=== PATIENT | female | born 1950 | race Caucasian/White ===

== ENCOUNTER 2016-07-13 09:03 | Inpatient (IN) | payer MEDICARE ==
[2016-07-13] MEDS ORDERED: SODIUM CHLORIDE 0.9% 1,000 ML IV STA (09:06)
[2016-07-13] MEDS ORDERED: ACETAMINOPHEN IV (For NPO) 1,000 MG in SALINE 1 100ML.BAG IVPB STA (09:07)
[2016-07-13 09:16] LABS: Glucose,Whole Blood 492 mg/dL (75-99)
--- NOTE | 2016-07-13 09:20 | ED ---
General Adult HPI - General Chief complaint: Neuro Symptoms/Deficit Stated complaint: Neuro Def Time Seen by Provider: 07/13/16 09:06 Source: patient, EMS, RN notes reviewed Mode of arrival: EMS Limitations: altered mental status, physical limitation - History of Present Illness Initial comments: Patient is a pleasant 66-year-old female presenting to the emergency department with weakness. Patient last known well last night. Family tried to get patient out of her chair this morning and she fell. When EMS arrived they did notice patient having left-sided flaccid weakness. Patient did complain of headache. Patient still complains of headache. Patient states she knows the headache when she woke this morning. Patient admits to feeling somewhat confused. No history of similar symptoms previously. Patient denies any trauma to her head. No neck pain. - Related Data Home Medications Medication Instructions Recorded Confirmed ALPRAZolam [Xanax] 2 mg PO BID 07/13/16 07/13/16 Citalopram Hydrobromide [CeleXA] 40 mg PO DAILY 07/13/16 07/13/16 Insulin Aspart [NovoLOG] 0 unit SQ TID 07/13/16 07/13/16 Insulin Detemir [Levemir] 30 unit SQ DAILY 07/13/16 07/13/16 Levothyroxine Sodium [Synthroid] 100 mcg PO DAILY 07/13/16 07/13/16 traZODone HCL 300 mg PO HS 07/13/16 07/13/16 Allergies Allergy/AdvReac Type Severity Reaction Status Date / Time morphine Allergy Unknown Verified 07/13/16 09:17 Review of Systems ROS Statement: Those systems with pertinent positive or pertinent negative responses have been documented in the HPI. ROS Other: All systems not noted in ROS Statement are negative. Constitutional: Denies: fever Eyes: Denies: eye pain ENT: Denies: ear pain Respiratory: Denies: dyspnea Cardiovascular: Denies: chest pain Endocrine: Denies: fatigue Gastrointestinal: Denies: abdominal pain Genitourinary: Denies: dysuria Musculoskeletal: Denies: back pain Skin: Denies: rash Neurological: Reports: headache, weakness, confusion Past Medical History Past Medical History: Unable to Obtain, Diabetes Mellitus, Hypertension, Seizure Disorder, Thyroid Disorder History of Any Multi-Drug Resistant Organisms: Unobtainable Past Surgical History: Unable to Obtain Past Psychological History: Anxiety Smoking Status: Unknown if ever smoked Past Alcohol Use History: Unable to Obtain Past Drug Use History: Unable to Obtain General Exam Limitations: altered mental status, physical limitation General appearance: alert, in no apparent distress Head exam: Present: atraumatic Eye exam: Present: normal appearance, PERRL, other (Right-sided gaze with limited movement towards the left) ENT exam: Present: normal oropharynx Neck exam: Present: normal inspection. Absent: tenderness Respiratory exam: Present: normal lung sounds bilaterally Cardiovascular Exam: Present: regular rate, normal rhythm GI/Abdominal exam: Present: soft. Absent: tenderness Extremities exam: Present: normal inspection Neurological exam: Present: alert, oriented X3 Expanded Neurological exam: Present: protecting the airway, other (Mildly garbled speech. Mild left facial droop) Patient oriented to: Present: person, time. Absent: place (Patient states she is in the ambulance) Sensory exam: Upper Extremity Light Touch: Abnormal Left, Lower Extremity Light Touch: Normal Motor strength exam: RUE: 5, LUE: 0, RLE: 5, LLE: 0 Eye Response: (4) open spontaneously Motor Response: (6) obeys commands Verbal Response: (4) confused conversation Psychiatric exam: Present: normal affect, normal mood Skin exam: Absent: rash Course Vital Signs 07/13/16 09:10 Temperature 97.7 F Pulse Rate 102 H Respiratory 18 Rate Blood Pressure 114/57 O2 Sat by Pulse 94 L Oximetry - Reevaluation(s) Reevaluation #1: 07/13/16 09:21 Patient is not a TPA candidate secondary to onset of symptoms greater than 4.5 hours. 07/13/16 09:41 Further history taken from family who states patient has not been doing well for actually a couple of days. He states patient had difficulty walking yesterday and did have a seizure yesterday as well. He did notice symptoms worse this morning. EKG Findings - EKG Comments: EKG Findings:: Normal sinus rhythm and 98. DC 192. QRS 88. QT 388. QTC 495. Normal axis. Normal QRS. Normal ST-T. Medical Decision Making - Medical Decision Making Patient reevaluated and unchanged. Family and patient updated on results and plan. Dr. Shipman paged for admission for Dr. Nicholson. - Lab Data Result diagrams: 07/13/16 09:10 Lab Results 07/13/16 07/13/16 07/13/16 Range/Units 09:06 09:10 09:10 WBC 14.3 H (3.8-10.6) k/uL RBC 3.92 (3.80-5.40) m/uL Hgb 10.6 L (11.4-16.0) gm/dL Hct 34.2 (34.0-46.0) % MCV 87.5 (80.0-100.0) fL MCH 27.0 (25.0-35.0) pg MCHC 30.9 L (31.0-37.0) g/dL RDW 15.1 (11.5-15.5) % Plt Count 407 (150-450) k/uL PT 11.1 (9.0-12.0) sec INR 1.1 (<1.1) APTT 22.0 (22.0-30.0) sec POC Glucose (mg/dL) 492 H (75-99) mg/dL POC Glu Dynamo Tender ID Jaswinder Colin Disposition Clinical Impression: Cerebrovascular accident Disposition: ADMITTED IP TO THIS HOSP Condition: Serious
--- NOTE | 2016-07-13 09:30 | CT ---
EXAMINATION TYPE: CT brain wo con DATE OF EXAM: 07/13/2016 9:23 AM COMPARISON: NONE HISTORY: Neurodeficits, acute onset left-sided weakness CT DLP: 1012.70 mGycm. Automated Exposure Control for Dose Reduction was Utilized. TECHNIQUE: CT scan of the head is performed without contrast. FINDINGS: There is no acute intracranial hemorrhage or midline shift identified. The ventricles an d sulci show mild generalized atrophy. There is gonzalez-white matter blurring with sulcal effacement inv olving the right frontal parietal region with extension into the temporal lobe consistent with large evolving acute infarct. The globes are intact and the visualized sinuses are clear. IMPRESSION: No acute intracranial hemorrhage or midline shift is seen. Large evolving acute infarct right MCA distribution noted.
[2016-07-13 09:39] LABS: CH 27.6; CHCM 31.7; HCT 34.2 % (34.0-46.0); HDW 2.88; HGB 10.6 gm/dL (11.4-16.0); Hypochromasia Slight; Immature Gran Flag Marked; MCHC 30.9 g/dL (31.0-37.0); MCV 87.5 fL (80.0-100.0); Mean Platelet Volume 7.8; RBC 3.92 m/uL (3.80-5.40); RDW 15.1 % (11.5-15.5); WBC 14.3 k/uL (3.8-10.6); WBC (Perox) 15.09
[2016-07-13 09:44] LABS: INR 1.1 (<1.1); Prothrombin Time 11.1 sec (9.0-12.0)
[2016-07-13 09:47] LABS: AST 52 U/L (14-36); Blood Urea Nitrogen 43 mg/dL (7-17); Carbon Dioxide 19 mmol/L (22-30); Total Bilirubin 0.9 mg/dL (0.2-1.3)
[2016-07-13] MEDS ORDERED: ASPIRIN 325 MG TAB PO STA (09:53)
[2016-07-13 10:01] LABS: ALT 18 U/L (9-52); Alkaline Phosphatase 98 U/L (38-126); Anion Gap 19 mmol/L; Chloride 96 mmol/L (98-107); Non-African American GFR(MDRD) 16 (>60 ml/min/1.73 sqM); Sodium 134 mmol/L (137-145)
[2016-07-13 10:06] LABS: Glucose 496 mg/dL (74-99)
[2016-07-13 10:13] LABS: Add Differential Manual Differential; Troponin I 0.023 ng/mL (0.000-0.034)
[2016-07-13] MEDS ORDERED: INSULIN REGULAR 100 UNIT/ML VIAL SQ ONE (10:14)
[2016-07-13 10:16] LABS: Creatine Kinase MB 8.1 ng/mL (0.0-2.4)
[2016-07-13] MEDS ORDERED: SODIUM CHLORIDE 0.9% 500 ML IV STA (10:16)
[2016-07-13 10:17] LABS: Band Neutrophils % 15.5 %; Metamyelocytes % 2.5 %; Nucleated Red Blood Cells 0 /100 WBC (0-0); Polychromasia Present; Total Cells Counted 200
--- NOTE | 2016-07-13 10:21 | XR ---
EXAMINATION TYPE: XR chest 1V portable DATE OF EXAM: 07/13/2016 9:35 AM COMPARISON: NONE HISTORY: Weakness TECHNIQUE: Single AP portable frontal upright view of the chest is obtained. FINDINGS: There is chronic parenchymal change without suspicious focal air space opacity, pleural ef fusion, or pneumothorax seen. The cardiac silhouette size is mildly enlarged with atherosclerotic th oracic aorta. The osseous structures are intact. IMPRESSION: No acute pulmonary process.
[2016-07-13 13:33] LABS: Glucose,Whole Blood 451 mg/dL (75-99)
[2016-07-13 13:46] LABS: Hemoglobin A1C 9.7 % (4.2-6.1)
[2016-07-13] MEDS: LEVOTHYROXINE 100 MCG TAB PO SCH (14:19)
[2016-07-13] MEDS: INSULIN LISPRO (humaLOG) 300 UNIT/3 ML VIAL SQ SCH ×3 (14:20→21:12)
[2016-07-13] MEDS: SODIUM CHLORIDE 0.9% 1,000 ML IV SCH ×2 (14:25→21:12)
[2016-07-13] MEDS: INSULIN DETEMIR 100 UNIT/ML 10 ML VIAL SQ SCH (14:32)
--- NOTE | 2016-07-13 14:36 | ECHOF ---
Referral Reason: MEASUREMENTS -------- HEIGHT: 167.6 cm WEIGHT: 93.0 kg BP: IVSd: 0.9 cm (0.6 - 1.1) LVIDd: 2.0 cm (3.9 - 5.3) LVPWd: 1.1 cm (0.6 - 1.1) IVSs: 1.3 cm LVIDs: 1.1 cm LVPWs: 1.3 cm Ao Diam: 3.4 cm (2.0 - 3.7) AV Cusp: 2.6 cm (1.5 - 2.6) LA Diam: 2.3 cm (2.7 - 3.8) MV E Fan: 0.66 m/s MV DecT: 180 ms MV A Fan: 1.04 m/s MV E/A Ratio: 0.63 RAP: 5.00 mmHg RVSP: 11.07 mmHg FINDINGS -------- Sinus rhythm. This was a technically adequate study. Left ventricular wall thickness is normal. Overall left ventricular systolic function is normal with, an EF between 55 - 60 %. The right ventricle is normal in size and function. The left atrium is normal in size. The right atrium is normal in size. The aortic valve is trileaflet, and appears structurally normal. No aortic stenosis or regurgitation. The mitral valve leaflets are mildly thickened. Mild mitral regurgitation is present. Trace tricuspid regurgitation present. The right ventricular systolic pressure, as measured by Doppler, is 11.07mmHg. Pulmonic valve appears structurally normal. The aortic root size is normal. The pericardium is normal. CONCLUSIONS -------- 1. Sinus rhythm. 2. Mild mitral regurgitation is present. 3. Trace tricuspid regurgitation present. 4. The right ventricular systolic pressure, as measured by Doppler, is 11.07mmHg. 5. Pulmonic valve appears structurally normal. 6. The aortic root size is normal. 7. The pericardium is normal. 8. This was a technically adequate study. 9. Left ventricular wall thickness is normal. 10. Overall left ventricular systolic function is normal with, an EF between 55 - 60 %. 11. The right ventricle is normal in size and function. 12. The left atrium is normal in size. 13. The right atrium is normal in size. 14. The aortic valve is trileaflet, and appears structurally normal. No aortic stenosis or regurgitation. 15. The mitral valve leaflets are mildly thickened. BRUSH CLEARER SURVEYING: Lisbet Pressley RDCS
[2016-07-13] MEDS ORDERED: SODIUM BICARB 8.4% 50 ML SYR (1 MEQ/ML) IV ONE (15:32)
[2016-07-13] MEDS ORDERED: DEXTROSE 50%-WATER 50 ML SYRINGE IVP ONE (15:32)
[2016-07-13] MEDS ORDERED: INSULIN REGULAR 100 UNIT/ML VIAL IV ONE (15:32)
[2016-07-13] MEDS ORDERED: CALCIUM GLUCONATE 1,000 MG in SODIUM CHLORIDE 0.9% 100 ML IVPB ONE (16:00)
[2016-07-13 16:30] LABS: Glucose,Whole Blood 324 mg/dL (75-99)
--- NOTE | 2016-07-13 17:10 | HP ---
DATE OF SERVICE: 07/13/2016 CHIEF COMPLAINT: Slurring of speech and left-sided weakness. HISTORY OF PRESENT ILLNESS: Ms. Monson is a 66-year-old female with a past medical history of diabetes mellitus, hypertension, seizure disorder, thyroid disorder brought in by family with a chief complaint of left-sided weakness and slurring of speech. Patient has currently slurring of speech and is not able to provide good history, so most of the history is taken from the son who is at the bedside and also from her sister. As per the son, the patient was noted to have a seizure-like activity. Yesterday afternoon, she had some difficulty in her speech, but they it was okay as the seizures resolved. Later on, she went to bed and this morning they tried to get her up into a chair, but she could not and she fell and at that time they noted that the patient had left-sided flaccid weakness. Patient does complain of some headache. The patient is confused at times. She has slurring of speech, but no facial droop is noted. The patient denies having any trauma to her head. No complaints of any neck pain. As per the son, patient is compliant with her medications. Nothing unusual happened yesterday. Patient did not have any fevers. REVIEW OF SYSTEMS: Cannot be obtained as she can only mumble. PAST MEDICAL HISTORY : 1. Type 2 diabetes mellitus, poorly controlled with A1c of 9.7. 2. History of hypertension. 3. Seizure disorder. 4. Thyroid disorder. ALLERGIES ARE TO MORPHINE. Patient's home medications: 1. Xanax 2 mg p.o. b.i.d. 2. Citalopram 40 mg p.o. daily. 3. Lantus 30 units at night and 4. Levothyroxine 100 mcg p.o. daily. 5. Trazodone 30 mg p.o. q.h.s. and 6. She is on NovoLog on a sliding scale SOCIAL HISTORY: Patient does not smoke or drink currently. PAST SURGICAL HISTORY: Patient's son is unable to provide us any information on that. FAMILY HISTORY: Her son states that there is no family history of stroke or hypertension. EXAMINATION: Patient's vitals: Temperature 97.1, heart rate 96, respirations 18, blood pressure 106/56, saturating at 96% on 2L of nasal cannula. GENERAL: Patient does not appear to be in acute distress, but at times she is confused. APPLIED ANTHROPOLOGIST: Flaccid paralysis of her left upper and lower extremities. There is some slurring of speech and she is confused at times. HEAD: Atraumatic. EYES: Pupils equal and round and reactive to light. Right-sided gaze with limited movement toward the left. NECK: No thyromegaly. No JVD. RESPIRATORY: Bilateral breath sounds are positive. CARDIAC: S1, S2 heard. GI: Abdomen is soft, nontender. Bowel sounds positive. EXTREMITIES: No edema. No cyanosis. NEUROLOGICAL: The patient is alert, awake, follows commands, but at times is confused. The left upper and lower extremity motor strength is 0 out of 5. MUSCULOSKELETAL: No joint swellings or deformities. SKIN: No rashes. PSYCHIATRIC: She is not tearful. Patient's labs are white count of 14.3, hemoglobin is 10.6, platelets of 407. Sodium 134, potassium 6, chloride 96, bicarb 19, BUN 43, creatinine 3, blood sugar of 400. Hemoglobin A1c of 9.7. Total protein is 7. Albumin 3.5. Acetone is negative. Patient did have a CT scan of the brain showing a large evolving acute infarct of the right MCA. ASSESSMENT AND PLAN: 1. Acute infarct of the right middle cerebral artery with left-sided flaccid paralysis of the upper and lower extremities. 2. Hyperkalemia. 3. Acute kidney injury. 4. Hyperglycemia. 5. Leukocytosis. 6. Type 2 diabetes mellitus, poorly controlled with A1c of 9.7. 7. History of hypertension. 8. Seizure disorder. 9. Thyroid disorder. PLAN: 1. The patient has an acute stroke of the right MCA territory with left-sided hemiparesis. The patient did receive aspirin and started on Plavix by Neurology. She is not a candidate for TPA. 2. Will continue with IV fluids for her acute kidney injury. Will repeat her potassium. 3. Will get a carotid artery Doppler and an echocardiogram for the stroke workup. Neurology has been consulted. PT, OT has been consulted. Overall prognosis is poor. Further recommendations to follow, depending on the progress of the patient. GLORYD
[2016-07-13 20:33] LABS: Glucose,Whole Blood 188 mg/dL (75-99)
--- NOTE | 2016-07-13 20:44 | P.CNNES ---
History of Present Illness Consult date: 07/13/16 Requesting physician: Buster Geronimo Reason for Consult: CVA Chief complaint: CVA History of Present Illness: Patient is a 66-year-old female in consult on by neurology at the request of Dr. Geronimo. Patient presented in the emergency department with weakness. Weakness began occurring over the previous 24 hours. Family try to get the patient out of the chair this morning and she fell. EMS arrived and noted the patient had left-sided flaccid weakness. Patient also complained of a headache. Patient admitted waking this morning with the headache. She also admits to feeling somewhat confused. Patient does have a seizure history approximately greater than 2 years with no ongoing management. Family states that the patient over the last couple weeks has become increasingly more confused, having difficulty ambulating and appeared to veer to one side but family members could not agree if it was to the left or to the right. On contact, the patient was semireclined in bed, alert and oriented 3 with obvious left-sided facial upper extremity and lower extremity deficits. Patient 's speech was intermittently slurred but the patient was able to answer questions as well as formulate thoughts. Patient CT of the brain was positive for right MCA infarct. Review of Systems All systems not previously noted in HPI above are negative. Past Medical History Past Medical History: Unable to Obtain, Diabetes Mellitus, Hypertension, Seizure Disorder, Thyroid Disorder History of Any Multi-Drug Resistant Organisms: Unobtainable Past Surgical History: Unable to Obtain Past Psychological History: Anxiety Smoking Status: Unknown if ever smoked Past Alcohol Use History: Unable to Obtain Past Drug Use History: Unable to Obtain Medications and Allergies Home Medications Medication Instructions Recorded Confirmed Type ALPRAZolam [Xanax] 2 mg PO BID 07/13/16 07/13/16 History Citalopram Hydrobromide [CeleXA] 40 mg PO QAM 07/13/16 07/13/16 History Insulin Aspart [NovoLOG] See Protocol SQ AC-TID 07/13/16 07/13/16 History Insulin Detemir [Levemir] 30 unit SQ QAM 07/13/16 07/13/16 History Levothyroxine Sodium [Synthroid] 100 mcg PO DAILY 07/13/16 07/13/16 History Timolol 0.5% Ophth Soln [Timoptic 1 drop BOTH EYES HS 07/13/16 07/13/16 History 0.5% Ophth Soln] traZODone HCL 300 mg PO HS 07/13/16 07/13/16 History Allergies Allergy/AdvReac Type Severity Reaction Status Date / Time morphine Allergy Unknown Verified 07/13/16 10:30 Physical Examination - Vital Signs Vital Signs: Vital Signs Temp Pulse Pulse Resp BP BP Pulse Ox 07/13/16 20:11 83 22 07/13/16 16:00 97.7 F 99 20 123/58 97 07/13/16 10:55 98.2 F 83 22 102/55 93 L 07/13/16 10:25 97.1 F L 96 18 106/56 96 07/13/16 10:03 96 18 108/59 96 Intake and Output 07/13/16 07/13/16 07/13/16 06:59 14:59 22:59 Output Total 5 Balance -5 Output: Stool 5 Other: Voiding Method Diaper Incontinent # Voids 1 2 Weight 92.986 kg Patient Weight 07/14/16 06:59 Weight 92.986 kg Constitutional: AOx3, cooperative Head: NC/AT Throat: Supple, no masses Respiratory: No increased work of breathing Cardiac: Regular rate and Rhythm GI: non tender, non distended Musculoskeletal: Big Data Hadoop Developer strengths: left upper extremity-0 /5, left lower extremity-0/5, right upper extremity 4/5, right lower extremity 4/5 Neurological: CN II-XII in tact, patient was AOx3, speech and language garbled, left-sided unilateralizing weakness, no seizure activity note on physical exam. Sensation was normal. Integementary: no rash, no erythema Psychiatric: mood and affect appropriate Results - Laboratory Findings CBC and BMP: 07/13/16 09:10 07/13/16 09:10 Abnormal Lab Findings: Abnormal Labs 07/13/16 07/13/16 13:31 16:29 POC Glucose (mg/dL) 451 H 324 H Assessment and Plan (1) Cerebrovascular accident Status: Acute (2) Acute kidney injury Status: Acute (3) Acute hyperkalemia Status: Acute (4) Hyperglycemia Status: Acute Plan: 1. CVA: Patient has documented imaging changes involving the right middle cerebral artery on CT of the brain. Patient has extensive left-sided upper and lower extremity deficits. Patient also has noticeable left-sided facial droop, garbled speech. PT, OT and speech therapy are already on consult. Continue aspirin, Plavix, statin at existing dose and frequency. Neurochecks every 4 hours Notify neurology with any neurological status change immediately. 2. Acute kidney injury: stat BMP ordered if abnormal notify PCP. 3. Hyperkalemia: Patient has documented hyperkalemia as evidenced by lab values. Potassium level is 6.0elevated. Stat BMP ordered. 4. Hyperglycemia: Patient is a known diabetic greater than 3 years with uncontrolled diabetes. Recommend endocrinology consult. A1c is greater than 9. Recommend consult nutrition. I discussed the patient's pertinent medical information with Dr. Palacio. He agrees with the plan of care as implemented. Status: Neurology Will continue to follow and provide updates as needed or warranted. If any questions, contact our office.
[2016-07-13] MEDS: TIMOLOL 0.5% OPHTH DROPS 5 ML BTL BOTH EYES SCH (21:15)
[2016-07-13] MEDS: ATORVASTATIN 80 MG TAB PO SCH (21:15)
[2016-07-13 21:58] LABS: Calcium 9.2 mg/dL (8.4-10.2); Potassium 4.2 mmol/L (3.5-5.1)
[2016-07-13] MEDS: ALPRAZolam 0.5 MG TAB PO SCH (22:59)
[2016-07-14 06:18] LABS: Glucose,Whole Blood 184 mg/dL (75-99)
[2016-07-14] MEDS: INSULIN LISPRO (humaLOG) 300 UNIT/3 ML VIAL SQ SCH ×4 (06:48→21:37)
[2016-07-14] MEDS: SODIUM CHLORIDE 0.9% 1,000 ML IV SCH ×2 (06:48→17:39)
[2016-07-14 07:07] LABS: Basophils % (A) 0 %; CHCM 31.5; Eosinophils # (A) 0.1 k/uL (0-0.7); Eosinophils % (A) 1 %; HCT 29.4 % (34.0-46.0); HDW 2.84; HGB 9.2 gm/dL (11.4-16.0); Hypochromasia Slight; Luc % (Auto) 2; Lymphocytes # (A) 1.7 k/uL (1.0-4.8); Lymphocytes % (A) 15 %; MCH 26.9 pg (25.0-35.0); MCHC 31.4 g/dL (31.0-37.0); MCV 85.8 fL (80.0-100.0); Mean Platelet Volume 6.6; Monocytes # (A) 0.7 k/uL (0-1.0); Monocytes % (A) 6 %; Neutrophils % (A) 77 %; RBC 3.42 m/uL (3.80-5.40); RDW 14.8 % (11.5-15.5); WBC 11.7 k/uL (3.8-10.6); WBC (Perox) 12.62
[2016-07-14 07:30] LABS: Calcium 8.9 mg/dL (8.4-10.2); Potassium 4.4 mmol/L (3.5-5.1)
--- NOTE | 2016-07-14 08:10 | P.NPCON ---
History of Present Illness - Reason for Consult acute renal failure - History of Present Illness Reason for consultation: Acute kidney injury History of present illness: Patient is a 66-year-old female seen in renal consultation for acute kidney injury. Unclear as to what her baseline renal function is. Her creatinine was 3 on admission and has been improving with IV hydration. It is down to 1.6 today. Patient presented to hospital with left-sided weakness as well as slurring of her speech. She is noted to have a right MCA acute CVA. She is currently on a soft diet but her oral intake remains poor. Denies any vomiting or diarrhea. Denies chest pain or shortness of breath. She was hyperkalemic on admission which is improved with improved renal function. Her blood sugar was also near 500 on admission which worsened the hyperkalemia. This morning her blood sugar is 184. Potassium level this morning is 4.4. I don't see any NSAIDs listed in her home medications. She has been voiding without any evidence of hematuria. Vital signs are stable. General: The patient appeared well nourished and normally developed. HEENT: Head exam is unremarkable. Neck is without jugular venous distension. LUNGS: Lungs are clear to auscultation and percussion. Breath sounds decreased. HEART: Rate and Rhythm are regular. First and second heart sounds normal. No murmurs, rubs or gallops. ABDOMEN: Abdominal exam reveals normal bowel sounds. Non-tender and non- distended. No evidence of peritonitis. EXTREMITITES: No clubbing, cyanosis, or edema. Past Medical History Past Medical History: Unable to Obtain, Diabetes Mellitus, Hypertension, Seizure Disorder, Thyroid Disorder History of Any Multi-Drug Resistant Organisms: Unobtainable Past Surgical History: Unable to Obtain, Breast Surgery Additional Past Surgical History / Comment(s): L breast mastectomy Past Anesthesia/Blood Transfusion Reactions: Unable to Obtain Past Psychological History: Unable to Obtain, Anxiety Smoking Status: Unknown if ever smoked Past Alcohol Use History: Unable to Obtain Past Drug Use History: Unable to Obtain - Past Family History Father Family Medical History: Unable to Obtain Medications and Allergies Home Medications Medication Instructions Recorded Confirmed Type ALPRAZolam [Xanax] 2 mg PO BID 07/13/16 07/13/16 History Citalopram Hydrobromide [CeleXA] 40 mg PO QAM 07/13/16 07/13/16 History Insulin Aspart [NovoLOG] See Protocol SQ AC-TID 07/13/16 07/13/16 History Insulin Detemir [Levemir] 30 unit SQ QAM 07/13/16 07/13/16 History Levothyroxine Sodium [Synthroid] 100 mcg PO DAILY 07/13/16 07/13/16 History Timolol 0.5% Ophth Soln [Timoptic 1 drop BOTH EYES HS 07/13/16 07/13/16 History 0.5% Ophth Soln] traZODone HCL 300 mg PO HS 07/13/16 07/13/16 History Allergies Allergy/AdvReac Type Severity Reaction Status Date / Time morphine Allergy Unknown Verified 07/13/16 10:30 Physical Exam Vitals: Vital Signs Temp Pulse Pulse Resp BP BP Pulse Ox 07/14/16 04:00 99.1 F 87 18 137/68 99 07/14/16 00:00 98.6 F 90 18 113/53 98 07/13/16 21:00 98.3 F 100 18 106/60 98 07/13/16 20:11 83 22 07/13/16 16:00 97.7 F 99 20 123/58 97 07/13/16 10:55 98.2 F 83 22 102/55 93 L 07/13/16 10:25 97.1 F L 96 18 106/56 96 07/13/16 10:03 96 18 108/59 96 Intake and Output 07/13/16 07/14/16 07/14/16 22:59 06:59 14:59 Intake Total 800 Output Total 5 Balance -5 800 Intake: Intake, IV Titration 600 Amount Sodium Chloride 0.9% 1, 600 000 ml @ 100 mls/hr IV . Q10H [facility] Rx#:[id number] Oral 200 Output: Stool 5 Other: Voiding Method Diaper Diaper Incontinent Incontinent # Voids 2 2 Weight 92.986 kg Results - Lab Results Most recent lab results Calcium 8.9 mg/dL (8.4-10.2) 07/14/16 06:43 07/14/16 06:43 07/14/16 06:43 Assessment and Plan Plan: Assessment: #1. Nonoliguric acute kidney injury mostly prerenal in nature secondary to poor oral intake. Improving with IV hydration. Creatinine peaked at 3 and is down to 1.62 today. Unclear as to what her baseline renal function is. #2. Acute right MCA CVA. #3. Anemia. Rule out iron deficiency. #4. Hyperkalemia secondary to hyperglycemia and acute kidney injury. Resolved. #5. Insulin-dependent diabetes mellitus. Plan: Maintain normal saline to be run at 100 mL an hour. Check urinalysis. Check ferritin level and iron studies. Encourage oral intake as tolerated. Repeat electrolytes in the morning. Thank you for the consultation. I will continue to follow the patient with you during her hospital stay.
[2016-07-14] MEDS: INSULIN DETEMIR 100 UNIT/ML 10 ML VIAL SQ SCH (08:20)
[2016-07-14] MEDS: CLOPIDOGREL 75 MG TAB PO SCH (08:20)
[2016-07-14] MEDS: CITALOPRAM HYDROBROMIDE 20 MG TAB PO SCH (08:21)
[2016-07-14] MEDS: ASPIRIN 81 MG CHEW PO SCH (08:21)
[2016-07-14] MEDS: LEVOTHYROXINE 100 MCG TAB PO SCH (08:21)
[2016-07-14] MEDS ORDERED: ASPIRIN 325 MG TAB PO SCH (09:54)
[2016-07-14 10:45] LABS: % Iron Saturation 5.2 % (20-50)
--- NOTE | 2016-07-14 11:24 | US ---
EXAMINATION TYPE: US carotid duplex BILAT DATE OF EXAM: 07/14/2016 10:04 AM COMPARISON: NONE CLINICAL HISTORY: Stenosis. CVA EXAM MEASUREMENTS: RIGHT: Peak Systolic Velocity (PSV) cm/sec ----- Right CCA: 70.6 ----- Right ICA: 75.8 ----- Right ECA: 73.6 ICA/CCA ratio: 1.1 RIGHT: End Diastole cm/sec ----- Right CCA: 14.7 ----- Right ICA: 17.5 ----- Right ECA: 8.7 LEFT: Peak Systolic Velocity (PSV) cm/sec ----- Left CCA: 67.0 ----- Left ICA: 86.7 ----- Left ECA: 95.6 ICA/CCA ratio: 1.3 LEFT: End Diastole cm/sec ----- Left CCA: 9.8 ----- Left ICA: 25.2 ----- Left ECA: 5.4 VERTEBRALS (direction of flow): Right Vertebral: Antegrade Left Vertebral: Antegrade TECHNOLOGIST IMPRESSION: No significant stenosis seen. Exam done portably, patient very restless and unable to hold still at end of exam. Grayscale, color Doppler, spectral Doppler imaging performed of the carotid arteries. Only mild ather omatous changes are present within the carotid arteries. IMPRESSION: No hemodynamic significant stenosis of the proximal internal carotid arteries bilaterall y by Doppler criteria, and indirect measurement of carotid stenosis
[2016-07-14 12:06] LABS: Glucose,Whole Blood 257 mg/dL (75-99)
--- NOTE | 2016-07-14 14:38 | P.PN ---
Subjective Principal diagnosis: right MCA infarct Patient is a 66-year-old female followed by neurology at the request of Dr. Geronimo for left-sided weakness. Patient has a confirmed right MCA infarct on CT of the brain. Yesterday I consult, the patient had significant left-sided facial droop, left side neglect and slurred speech. Patient was placed on Lipitor and Plavix. Patient was already undergoing aspirin therapy. Aspirin was continued at 81 mg. EEG, carotid Doppler were ordered. Carotid Doppler returned with no hemodynamically significant stenosis. On contact today, the patient is unchanged. She still has significant left- sided deficit/neglect. She has observed facial droop and significantly slurred speech. She is able to formulate thoughts and follow commands. Objective - Vital Signs Vital signs: Vital Signs Temp 98.9 F 07/14/16 11:34 Pulse 94 07/14/16 11:38 Resp 18 07/14/16 11:38 BP 144/93 07/14/16 11:34 Pulse Ox 99 07/14/16 11:34 Intake & Output 07/13/16 07/14/16 07/14/16 18:59 06:59 18:59 Intake Total 800 220 Output Total 3 2 5 Balance -3 798 215 Weight 92.986 kg 92.986 kg 92.986 kg Intake: Intake, IV Titration 600 Amount Sodium Chloride 0.9% 1, 600 000 ml @ 100 mls/hr IV . Q10H [facility] Rx#:[id number] Oral 200 220 Output: Urine 2 Stool 3 2 3 Other: Voiding Method Diaper Diaper Diaper Incontinent Incontinent Incontinent # Voids 2 2 1 # Bowel Movements 0 - Exam Constitutional: AOx3, cooperative Head: NC/AT Throat: Supple, no masses Respiratory: No increased work of breathing Cardiac: Regular rate and Rhythm GI: non tender, non distended Musculoskeletal: Broker Associate strengths are: complete left sathish-neglect, right upper extremity 5 out of 5, right lower extremity 5 out of 5. Significant left-sided facial droop. Neurological: CN II-XII in tact, patient was AOx3, speech and language are slurred, unilateralizing weakness on the left, no seizure activity note on physical exam. Sensation was normal. Integementary: no rash, no erythema Psychiatric: mood and affect appropriate - Labs CBC & Chem 7: 07/14/16 06:43 07/14/16 06:43 Labs: Abnormal Lab Results - Last 24 Hours (Table) 07/13/16 07/13/16 07/13/16 Range/Units 16:29 20:24 21:31 WBC (3.8-10.6) k/uL RBC (3.80-5.40) m/uL Hgb (11.4-16.0) gm/dL Hct (34.0-46.0) % Neutrophils # (1.3-7.7) k/uL BUN 48 H (7-17) mg/dL Creatinine 2.17 H (0.52-1.04) mg/dL Glucose 170 H (74-99) mg/dL POC Glucose (mg/dL) 324 H 188 H (75-99) mg/dL Iron (37-170) ug/dL % Saturation (20-50) % Triglycerides (<150) mg/dL Cholesterol (<200) mg/dL LDL Cholesterol, Calc (0-99) mg/dL 07/14/16 07/14/16 07/14/16 Range/Units 06:13 06:43 06:43 WBC 11.7 H (3.8-10.6) k/uL RBC 3.42 L (3.80-5.40) m/uL Hgb 9.2 L (11.4-16.0) gm/dL Hct 29.4 L (34.0-46.0) % Neutrophils # 9.0 H (1.3-7.7) k/uL BUN 44 H (7-17) mg/dL Creatinine 1.62 H (0.52-1.04) mg/dL Glucose 177 H (74-99) mg/dL POC Glucose (mg/dL) 184 H (75-99) mg/dL Iron (37-170) ug/dL % Saturation (20-50) % Triglycerides 201 H (<150) mg/dL Cholesterol 208 H (<200) mg/dL LDL Cholesterol, Calc 127 H (0-99) mg/dL 07/14/16 07/14/16 Range/Units 06:43 11:43 WBC (3.8-10.6) k/uL RBC (3.80-5.40) m/uL Hgb (11.4-16.0) gm/dL Hct (34.0-46.0) % Neutrophils # (1.3-7.7) k/uL BUN (7-17) mg/dL Creatinine (0.52-1.04) mg/dL Glucose (74-99) mg/dL POC Glucose (mg/dL) 257 H (75-99) mg/dL Iron 16 L (37-170) ug/dL % Saturation 5.2 L (20-50) % Triglycerides (<150) mg/dL Cholesterol (<200) mg/dL LDL Cholesterol, Calc (0-99) mg/dL Assessment and Plan (1) Cerebrovascular accident Status: Acute (2) Acute kidney injury Status: Acute (3) Acute hyperkalemia Status: Acute (4) Hyperglycemia Status: Acute Plan: 1. CVA: Patient has documented imaging changes involving the right middle cerebral artery on CT of the brain. Patient has extensive left-sided upper and lower extremity deficits. Patient also has noticeable left-sided facial droop, garbled speech. PT, OT and speech therapy are already on consult. Continue aspirin, Plavix, statin at existing dose and frequency. Neurochecks every 4 hours Notify neurology with any neurological status change immediately. 2. Acute kidney injury: stat BMP ordered if abnormal notify PCP. 3. Hyperkalemia: Patient has documented hyperkalemia as evidenced by lab values. Potassium level is within normal limits. 4. Hyperglycemia: Patient is a known diabetic greater than 3 years with uncontrolled diabetes. Recommend endocrinology consult. A1c is greater than 9. Recommend consult nutrition. 5. Hypercholesterolemia: Patient has noted elevated cholesterol, triglycerides and LDL. Patient was started on Lipitor yesterday. Continue Lipitor existing dose and frequency. I discussed the patient's pertinent medical information with Dr. Palacio. He agrees with the plan of care as implemented. Status: Neurology Will continue to follow and provide updates as needed or warranted. If any questions, contact our office.
[2016-07-14 17:13] LABS: Glucose,Whole Blood 208 mg/dL (75-99)
[2016-07-14 20:41] LABS: Glucose,Whole Blood 188 mg/dL (75-99)
[2016-07-14] MEDS: ATORVASTATIN 80 MG TAB PO SCH (21:36)
[2016-07-14] MEDS: ALPRAZolam 0.5 MG TAB PO SCH (21:36)
[2016-07-14] MEDS: TIMOLOL 0.5% OPHTH DROPS 5 ML BTL BOTH EYES SCH (21:37)
[2016-07-15] MEDS ORDERED: DEXAMETHASONE SOD PHOSPHATE 4 MG/ML 1 ML VIAL IV PRN
[2016-07-15] MEDS: SODIUM CHLORIDE 0.9% 1,000 ML IV SCH ×4 (03:40→16:24)
[2016-07-15 05:18] LABS: Appearance,Urine Cloudy (Clear); Bilirubin,Urine Negative (Negative); Glucose,Urine (UA) 2+ (Negative); Ketones,Urine Negative (Negative); Leukocyte Esterase,Urine Moderate (Negative); Mucus,Urine Rare /hpf; Nitrite,Urine Negative (Negative); PH, Urine 6.5 (5.0-8.0); Particle Count 13357; Protein,Urine Negative (Negative); Specific Gravity,Urine 1.005 (1.001-1.035); Squamous Epithelial Cell,Urine 15 /hpf (0-4); UA Billing (MACRO vs. MICRO) MICRO; Urobilinogen,Urine <2.0 mg/dL (<2.0); WBC,Urine 25 /hpf (0-5)
[2016-07-15 05:39] LABS: Glucose,Whole Blood 198 mg/dL (75-99)
[2016-07-15] MEDS: LEVOTHYROXINE 100 MCG TAB PO SCH (05:57)
[2016-07-15] MEDS: INSULIN LISPRO (humaLOG) 300 UNIT/3 ML VIAL SQ SCH ×6 (05:57→17:50)
[2016-07-15 06:34] LABS: Basophils % (A) 0 %; CH 26.6; CHCM 30.9; Eosinophils % (A) 0 %; HCT 29.8 % (34.0-46.0); HDW 2.93; HGB 9.3 gm/dL (11.4-16.0); Hypochromasia Moderate; Luc # (Auto) 0.29; Luc % (Auto) 2; Lymphocytes # (A) 1.9 k/uL (1.0-4.8); Lymphocytes % (A) 13 %; MCHC 31.3 g/dL (31.0-37.0); MCV 86.5 fL (80.0-100.0); Mean Platelet Volume 6.5; Monocytes % (A) 7 %; Neutrophils # (A) 10.9 k/uL (1.3-7.7); Neutrophils % (A) 77 %; RBC 3.45 m/uL (3.80-5.40); RDW 14.4 % (11.5-15.5); WBC 14.1 k/uL (3.8-10.6); WBC (Perox) 15.14
[2016-07-15 06:46] LABS: Anion Gap 10 mmol/L; Blood Urea Nitrogen 21 mg/dL (7-17); Calcium 8.9 mg/dL (8.4-10.2); Carbon Dioxide 22 mmol/L (22-30); Chloride 104 mmol/L (98-107); Glucose 197 mg/dL (74-99); Iron 30 ug/dL (37-170); Non-African American GFR(MDRD) >60 (>60 ml/min/1.73 sqM); Potassium 4.3 mmol/L (3.5-5.1); Sodium 136 mmol/L (137-145)
[2016-07-15 06:54] LABS: % Iron Saturation 9.9 % (20-50); Total Iron Binding Capacity 304 ug/dL (265-497)
[2016-07-15] MEDS: CITALOPRAM HYDROBROMIDE 20 MG TAB PO SCH (08:11)
[2016-07-15] MEDS: ASPIRIN 81 MG CHEW PO SCH (08:12)
[2016-07-15] MEDS: CLOPIDOGREL 75 MG TAB PO SCH (08:12)
[2016-07-15] MEDS: INSULIN DETEMIR 100 UNIT/ML 10 ML VIAL SQ SCH (08:14)
[2016-07-15] MEDS ORDERED: SODIUM FERRIC GLUCONAT-SUCROSE 125 MG in SODIUM CHLORIDE 0.9% 100 ML IVPB SCH (09:00)
--- NOTE | 2016-07-15 09:14 | P.PN ---
Subjective Patient is seen in follow-up for acute kidney injury. Renal function is back to baseline with creatinine is 0.8 today. Her oral intake is fair. She is currently sleeping and difficult to awaken. She has been voiding. Hemodynamically she's been stable. Vital signs are stable. General: The patient appeared well nourished and normally developed. HEENT: Head exam is unremarkable. Neck is without jugular venous distension. LUNGS: Lungs are clear to auscultation and percussion. Breath sounds decreased. HEART: Rate and Rhythm are regular. First and second heart sounds normal. No murmurs, rubs or gallops. ABDOMEN: Abdominal exam reveals normal bowel sounds. Non-tender and non- distended. No evidence of peritonitis. EXTREMITITES: No clubbing, cyanosis, or edema. Objective - Vital Signs Vital signs: Vital Signs Temp 99.1 F 07/15/16 08:00 Pulse 88 07/15/16 08:00 Resp 16 07/15/16 08:00 BP 140/80 07/15/16 08:00 Pulse Ox 96 07/15/16 08:00 Intake & Output 07/14/16 07/15/16 07/15/16 18:59 06:59 18:59 Intake Total 310 600 Output Total 6 Balance 304 600 Weight 92.986 kg 88 kg Intake: Intake, IV Titration 600 Amount Sodium Chloride 0.9% 1, 600 000 ml @ 100 mls/hr IV . Q10H [facility] Rx#:[id number] Oral 310 Output: Urine 2 Stool 4 Other: Voiding Method Diaper Diaper Diaper Incontinent Incontinent Incontinent # Voids 1 2 # Bowel Movements 0 - Labs CBC & Chem 7: 07/15/16 06:04 07/15/16 06:04 Labs: Abnormal Lab Results - Last 24 Hours (Table) 07/14/16 07/14/16 07/14/16 Range/Units 06:43 11:43 16:34 WBC (3.8-10.6) k/uL RBC (3.80-5.40) m/uL Hgb (11.4-16.0) gm/dL Hct (34.0-46.0) % Neutrophils # (1.3-7.7) k/uL Sodium (137-145) mmol/L BUN (7-17) mg/dL Glucose (74-99) mg/dL POC Glucose (mg/dL) 257 H 208 H (75-99) mg/dL Iron 16 L (37-170) ug/dL % Saturation 5.2 L (20-50) % Urine Appearance (Clear) Urine Glucose (UA) (Negative) Urine Blood (Negative) Ur Leukocyte Esterase (Negative) Urine WBC (0-5) /hpf Ur Squamous Epith Cells (0-4) /hpf Urine Mucus (None) /hpf 07/14/16 07/15/16 07/15/16 Range/Units 20:39 05:00 05:37 WBC (3.8-10.6) k/uL RBC (3.80-5.40) m/uL Hgb (11.4-16.0) gm/dL Hct (34.0-46.0) % Neutrophils # (1.3-7.7) k/uL Sodium (137-145) mmol/L BUN (7-17) mg/dL Glucose (74-99) mg/dL POC Glucose (mg/dL) 188 H 198 H (75-99) mg/dL Iron (37-170) ug/dL % Saturation (20-50) % Urine Appearance Cloudy H (Clear) Urine Glucose (UA) 2+ H (Negative) Urine Blood Trace H (Negative) Ur Leukocyte Esterase Moderate H (Negative) Urine WBC 25 H (0-5) /hpf Ur Squamous Epith Cells 15 H (0-4) /hpf Urine Mucus Rare H (None) /hpf 07/15/16 07/15/16 Range/Units 06:04 06:04 WBC 14.1 H (3.8-10.6) k/uL RBC 3.45 L (3.80-5.40) m/uL Hgb 9.3 L (11.4-16.0) gm/dL Hct 29.8 L (34.0-46.0) % Neutrophils # 10.9 H (1.3-7.7) k/uL Sodium 136 L (137-145) mmol/L BUN 21 H (7-17) mg/dL Glucose 197 H (74-99) mg/dL POC Glucose (mg/dL) (75-99) mg/dL Iron 30 L (37-170) ug/dL % Saturation 9.9 L (20-50) % Urine Appearance (Clear) Urine Glucose (UA) (Negative) Urine Blood (Negative) Ur Leukocyte Esterase (Negative) Urine WBC (0-5) /hpf Ur Squamous Epith Cells (0-4) /hpf Urine Mucus (None) /hpf Assessment and Plan Plan: Assessment: #1. Nonoliguric acute kidney injury mostly prerenal in nature secondary to poor oral intake. Improving with IV hydration. Creatinine peaked at 3 and is down to 0.8 today. #2. Acute right MCA CVA. #3. Anemia. Iron deficiency noted. #4. Hyperkalemia secondary to hyperglycemia and acute kidney injury. Resolved. #5. Insulin-dependent diabetes mellitus. Plan: Decreased rate of normal saline to 60 mL an hour. Ferrlecit 125 mg IV daily for 3 days. First dose today. Encourage oral intake as tolerated. Repeat electrolytes in the morning.
[2016-07-15] MEDS ORDERED: ACETAMINOPHEN TAB 325 MG TAB PO PRN (11:30)
[2016-07-15 11:51] LABS: Glucose,Whole Blood 210 mg/dL (75-99)
[2016-07-15 13:49] VITALS: BMI 31.3
--- NOTE | 2016-07-15 13:55 | CDI ---
In responding to this query, please exercise your independent professional judgment. The [facility] Coding Staff and Clinical Documentation Specialists appreciate your assistance in clarifying documentation, maintaining compliance with coding guidelines, accurately documenting patients condition and capturing severity of illness. The fact that a question is asked does not imply that any particular answer is desired or expected. Communication forms are a method of clarifying documentation and are not made part of the Legal Health Record. Thank you in advance for your clarification. Last Revision, June 2015 Jeannie Guillen [address] [place] [address] Documentation Clarification Form Date: 07/15/2016 1:41:00 PM From: Julio Shukla, RN, BSN, CDI Admit Date: 07/13/2016 9:53:00 AM Patient Name: Lillian Quintero Visit Number: [id number] Dr. Keiko Shipman: Confusion/Altered mental status was documented in the ER notes, H&P and neurology consult Patient history/risk factors: 66 yo female with a history of DM, HTN and seizure disorder presents with c/o weakness, left sided weakness/flaccidity, facial droop, JERONIMO and she is becoming increasingly more confusion. Per ED notes , she has garbled speech w/confused conversation. Clinical Indicators: Labs: triglycerides: 201, cholesterol: 208, BUN: 43, Cr: 3.00, glucose: 496, HgbA1: 9.7% CT brain: large evolving acute infarct of the right MCA distribution Treatment: carotid dopplers, ASA, Plavix, IVF @100cc/hr Consults: neurology, nephrology In your professional opinion, please clarify the etiology of the altered mental status, if known. Encephalopathy (specify Type and Underlying Medical Illness) Dementia (if know, specify Type and if with/without Behavioral Disturbance) Delirium (specify cause): Other condition (please specify) Unable to determine Please document in your progress notes and discharge summary in order to capture severity of illness and risk of mortality. Include clinical findings that support your diagnosis. FYI: Press F11 to launch patient chart. Place X here if this finding has no clinical significance, is not applicable or if you are not able to provide any additional documentation. ENCEPHALOPATHY - DUE TO STROKE MTDD
--- NOTE | 2016-07-15 14:33 | PN ---
DATE OF SERVICE: 07/14/2016 Chief complaint is slurring of speech and left-sided weakness. INTERVAL HISTORY: Ms. Quintero is a 66-year-old female with a past medical history of diabetes mellitus, hypertension, seizure disorder, thyroid disorder, brought in by the family due to left-sided weakness and slurring of speech. Patient had an CT of the head showing large acute right MCA infarct and she has flaccid left-sided paralysis. Patient is started on aspirin and statin and has PT, OT on board. Neurology has been consulted and following the patient. Today the patient's speech seem to be improved much and she was also following commands. She states that she feels nauseous, but did not throw up since morning. She also complains of severe headache. She is still not able to comprehend that she had a stroke and cannot move the left side of the body. She keeps telling that she wants to get up and sit in a chair. REVIEW OF SYSTEMS: SUPERVISOR WORD PROCESSING: Patient has left side flaccid paralysis. She complains of headache. CARDIAC: No chest pain or palpitations. GI: Positive for nausea but no vomiting or no diarrhea. : Patient has some urinary incontinence and she has diapers currently. RESPIRATORY: No difficulty in breathing or cough. The patient's medications have been reviewed. She is on aspirin, Xanax, Lipitor, Celexa, Plavix, Levemir, sliding scale of insulin, Synthroid and Timolol eye drops. depression. On examination, patient's vitals: Temperature 99.1, heart rate between 92 to 100, respiratory rate 20, blood pressure 145/73, saturating at 98% on 2 L of nasal cannula. GENERAL EXAMINATION: Patient appears to be in no acute distress, but she complains of nausea and has a tray as she feels like throwing up. As per the nursing staff report she did not throw up, but she keeps complaining her but she keeps complaining of nausea. SUPERVISOR WORD PROCESSING: Flaccid paralysis of the left upper and lower extremities. Her speech has improved compared to yesterday. Her mentation is also improved. HEENT: She has left-sided facial droop. EYES: Pupils round and reactive to light. Right-sided with limited movement towards the left. NECK: No thyromegaly, No JVD. RESPIRATORY: Bilateral breath sounds are positive. CARDIAC: S1, S2 heard. GI: Abdomen is soft. Bowel sounds positive, nontender. EXTREMITIES: No edema. No cyanosis. NEUROLOGICAL: She is alert, awake, follows commands. The stent in left upper and lower extremities is 0/5, right upper and lower extremities is 4/5. MUSCULOSKELETAL: No joint swellings or deformities. SKIN: No rash. PSYCHIATRIC: Patient does not seem to be depressed. PATIENT'S LABS: White count of 11.7, hemoglobin 9.2, platelets of 380. Sodium 140, potassium 4.4, chloride 104, bicarb 24, BUN 44, creatinine 1.62 and LDL 127, HDL 41. ASSESSMENT AND PLAN: 1. Acute right MCA stroke with left-sided flaccid paralysis of the upper and lower extremities. 2. Acute kidney injury. 3. Hyperkalemia. 4. Hyperglycemia. 5. Leukocytosis. 6. Type 2 diabetes mellitus, poorly controlled with an A1c of 9.7. 7. Hypertension. 8. Seizure disorder. 9. Thyroid disorder. PLAN: Plan is to continue the patient on aspirin, Plavix and also continue with IV fluids acute kidney injury p.r.n. and seems to be improving. Patient did get artery Doppler and echo as part of stroke work-up. Neurology on board and following the patient. Overall prognosis is guarded. Further recommendations to follow depending on the progress of the patient. She is getting Neuro checks q.4 hours. GLORYD
[2016-07-15 16:46] LABS: Glucose,Whole Blood 133 mg/dL (75-99)
--- NOTE | 2016-07-15 17:34 | CT ---
EXAMINATION TYPE: CT brain wo con DATE OF EXAM: 07/15/2016 5:24 PM COMPARISON: 07/13/2016 HISTORY: Mental status changes. CT DLP: 1400.30 mGycm Automated exposure control for dose reduction was used. FINDINGS: There is extensive hypodensity involving the right cerebral hemisphere in the right middle cerebral a rtery distribution. There is also some involvement of the right occipital lobe and right frontal lobe . There is some effacement of the right lateral ventricle. There is midline shift to the left side. T here is no sign of intracranial hemorrhage. IMPRESSION: There is evidence of a large subacute right hemispheric infarct involving right middle cerebral arter y distribution. There is significant increased cerebral edema and mass effect compared to the exam 2 days ago with midline shift to the left side and some effacement of the right lateral ventricle. No h emorrhage seen. Midline is shifted 1 cm to the left. There is third ventricle effacement as well.
[2016-07-15] MEDS ORDERED: DEXAMETHASONE SOD PHOSPHATE 10 MG/ML 1 ML VIAL IV STA (17:55)
--- NOTE | 2016-07-15 17:58 | XR ---
EXAMINATION TYPE: XR chest 1V portable DATE OF EXAM: 07/15/2016 5:51 PM COMPARISON: 07/13/2016 HISTORY: Unresponsive TECHNIQUE: Single frontal view of the chest is obtained. FINDINGS: There is no heart failure nor confluent pneumonic infiltrate. There are no hilar masses. C ostophrenic angles are clear. There are chest leads. IMPRESSION: No active cardiopulmonary disease. No change.
--- NOTE | 2016-07-15 20:10 | P.PN ---
Subjective Principal diagnosis: right MCA infarct Patient is a 66-year-old female followed by neurology at the request of Dr. Geronimo for left-sided weakness. Patient has a confirmed right MCA infarct on CT of the brain. Yesterday I consult, the patient had significant left-sided facial droop, left side neglect and slurred speech. Patient was placed on Lipitor and Plavix. Patient was already undergoing aspirin therapy. Aspirin was continued at 81 mg. EEG, carotid Doppler were ordered. Carotid Doppler returned with no hemodynamically significant stenosis. On contact today, the patient is unchanged. She still has significant left- sided deficit/neglect. She has observed facial droop and significantly slurred speech. She is able to formulate thoughts and follow commands. Patient was AOx3 at contact. However, a couple hours post rounding, the patient developed a fever and Dr Palacio was contact via phone. He recommended a repeat CT of the Brain. The CT noted significant enlargement in the acute stroke with a large midline shift. Patient was recommended to be transferred for neurosurgical evaluation for possible decompression. Objective - Vital Signs Vital signs: Vital Signs Temp 98.9 F 07/15/16 15:47 Pulse 93 07/15/16 19:15 Resp 20 07/15/16 19:15 BP 148/96 07/15/16 19:15 Pulse Ox 95 07/15/16 15:47 Intake & Output 07/15/16 07/15/16 07/16/16 06:59 18:59 06:59 Intake Total 600 150 Balance 600 150 Weight 88 kg 88 kg Intake: Intake, IV Titration 600 Amount Sodium Chloride 0.9% 1, 600 000 ml @ 100 mls/hr IV . Q10H [facility] Rx#:[id number] Oral 150 Other: Voiding Method Diaper Diaper Incontinent Incontinent # Voids 2 - Exam Constitutional: AOx3, cooperative Head: NC/AT Throat: Supple, no masses Respiratory: No increased work of breathing Cardiac: Regular rate and Rhythm GI: non tender, non distended Musculoskeletal: Preschool Paraprofessional strengths are: complete left sathish-neglect, right upper extremity 5 out of 5, right lower extremity 5 out of 5. Significant left-sided facial droop. Neurological: CN II-XII in tact, patient was AOx3, speech and language are slurred, unilateralizing weakness on the left, no seizure activity note on physical exam. Sensation was normal. Integementary: no rash, no erythema Psychiatric: mood and affect appropriate - Labs CBC & Chem 7: 07/15/16 06:04 07/15/16 06:04 Labs: Abnormal Lab Results - Last 24 Hours (Table) 07/14/16 07/14/16 07/15/16 Range/Units 06:43 20:39 05:00 WBC (3.8-10.6) k/uL RBC (3.80-5.40) m/uL Hgb (11.4-16.0) gm/dL Hct (34.0-46.0) % Neutrophils # (1.3-7.7) k/uL Sodium (137-145) mmol/L BUN (7-17) mg/dL Glucose (74-99) mg/dL POC Glucose (mg/dL) 188 H (75-99) mg/dL Iron (37-170) ug/dL % Saturation (20-50) % Homocysteine 15.66 H (4.00-14.00) umol/L Urine Appearance Cloudy H (Clear) Urine Glucose (UA) 2+ H (Negative) Urine Blood Trace H (Negative) Ur Leukocyte Esterase Moderate H (Negative) Urine WBC 25 H (0-5) /hpf Ur Squamous Epith Cells 15 H (0-4) /hpf Urine Mucus Rare H (None) /hpf 07/15/16 07/15/16 07/15/16 Range/Units 05:37 06:04 06:04 WBC 14.1 H (3.8-10.6) k/uL RBC 3.45 L (3.80-5.40) m/uL Hgb 9.3 L (11.4-16.0) gm/dL Hct 29.8 L (34.0-46.0) % Neutrophils # 10.9 H (1.3-7.7) k/uL Sodium 136 L (137-145) mmol/L BUN 21 H (7-17) mg/dL Glucose 197 H (74-99) mg/dL POC Glucose (mg/dL) 198 H (75-99) mg/dL Iron 30 L (37-170) ug/dL % Saturation 9.9 L (20-50) % Homocysteine (4.00-14.00) umol/L Urine Appearance (Clear) Urine Glucose (UA) (Negative) Urine Blood (Negative) Ur Leukocyte Esterase (Negative) Urine WBC (0-5) /hpf Ur Squamous Epith Cells (0-4) /hpf Urine Mucus (None) /hpf 07/15/16 07/15/16 Range/Units 11:49 16:44 WBC (3.8-10.6) k/uL RBC (3.80-5.40) m/uL Hgb (11.4-16.0) gm/dL Hct (34.0-46.0) % Neutrophils # (1.3-7.7) k/uL Sodium (137-145) mmol/L BUN (7-17) mg/dL Glucose (74-99) mg/dL POC Glucose (mg/dL) 210 H 133 H (75-99) mg/dL Iron (37-170) ug/dL % Saturation (20-50) % Homocysteine (4.00-14.00) umol/L Urine Appearance (Clear) Urine Glucose (UA) (Negative) Urine Blood (Negative) Ur Leukocyte Esterase (Negative) Urine WBC (0-5) /hpf Ur Squamous Epith Cells (0-4) /hpf Urine Mucus (None) /hpf Assessment and Plan (1) Cerebrovascular accident Status: Acute (2) Acute kidney injury Status: Acute (3) Acute hyperkalemia Status: Acute (4) Hyperglycemia Status: Acute Plan: 1. CVA: Patient has documented imaging changes involving the right middle cerebral artery on CT of the brain. Patient has extensive left-sided upper and lower extremity deficits. Patient also has noticeable left-sided facial droop, garbled speech. PT, OT and speech therapy are already on consult. Post rounding today, the patient developed a fever and Dr Palacio was contacted via phone. Repeat CT of the Brain was ordered. The CT noted significant enlargement in the acute stroke with a large midline shift. Patient was recommended to be transferred for neurosurgical evaluation for possible decompression. Continue aspirin, Plavix, statin at existing dose and frequency. Neurochecks every 1 hour Notify neurology with any neurological status change immediately. 2. Acute kidney injury: Managed. 3. Hyperkalemia: Patient has documented hyperkalemia as evidenced by lab values. Potassium level is within normal limits. 4. Hyperglycemia: Patient is a known diabetic greater than 3 years with uncontrolled diabetes. Recommend endocrinology consult. A1c is greater than 9. Recommend consult nutrition. 5. Hypercholesterolemia: Patient has noted elevated cholesterol, triglycerides and LDL. Patient was started on Lipitor previously Continue Lipitor existing dose and frequency. Neurology will continue to follow and provide updates as needed or warranted. Contact our office applications programmer analyst immediately with ANY neurological changes. I discussed the patient's pertinent medical information with Dr. Palacio. He agrees with the plan of care as implemented.
[2016-07-15 20:39] VITALS: BP 146/91; PULSE 104; RESP 30; TEMP 99.3
--- NOTE | 2016-07-16 12:38 | CDI ---
In responding to this query, please exercise your independent professional judgment. The [facility] Coding Staff and Clinical Documentation Specialists appreciate your assistance in clarifying documentation, maintaining compliance with coding guidelines, accurately documenting patients condition and capturing severity of illness. The fact that a question is asked does not imply that any particular answer is desired or expected. Communication forms are a method of clarifying documentation and are not made part of the Legal Health Record. Thank you in advance for your clarification. Last Revision, February 2015 Jeannie Guillen [address] [facility] [address] [place] [address] Documentation Clarification Form Date: 07/16/2016 12:24:00 PM From: Julio Shukla, RN, BSN, CDI Admit Date: 07/13/2016 9:53:00 AM Patient Name: Lillian Quintero Visit Number: [id number] Discharge Date: 07/15/16 Dr. Rosina Palacio/ Yomi Horn: Patient was admitted with an acute infarct of the right middle cerebral artery with left sided flaccid paralysis of the left upper and lower extremity. She also presents with JERONIMO, slurred speech and confusion. "Significant cerebral edema and mass effect with midline shift to the left side and effacement of the right lateral ventricle" is documented in the repeat CT brain done 07/15. History/Risk Factors: 66 yo female with a history of DM, HTN, seizure disorder and anxiety Clinical Indicators: Labs: triglycerides: 201, cholesterol: [address] brain: no acute ICH or midline shift, large evolving acute infarct right MCA distribution Treatment: Lipitor, Plavix, neuro checks, ASA, the patient was transferred to outside facility for neurosurgical evaluation for possible decompression. In your professional opinion, can you please clarify the underlying cause, condition or process, if any, represented by these findings? Cytotoxic cerebral edema Vasogenic cerebral edema Other cerebral edema, please specify Cerebral edema, etiology unknown Unable to determine Other condition, please specify Please document in your progress notes and discharge summary in order to capture severity of illness and risk of mortality. Include clinical findings that support your diagnosis. FYI: Press F11 to launch patient chart ___x__ Place X here if this finding has no clinical significance, is not applicable or if you are not able to provide any additional documentation. HYUN
--- NOTE | 2016-07-29 13:58 | CDI ---
In responding to this query, please exercise your independent professional judgment. The [facility] Coding Staff and Clinical Documentation Specialists appreciate your assistance in clarifying documentation, maintaining compliance with coding guidelines, accurately documenting patients condition and capturing severity of illness. The fact that a question is asked does not imply that any particular answer is desired or expected. Communication forms are a method of clarifying documentation and are not made part of the Legal Health Record. Thank you in advance for your clarification. Last Revision, June 2015 Jeannie Guillen [address] [place] [address] Documentation Clarification Form Date: 07/15/2016 1:41:00 PM From: Julio Shukla RN, CDI, CDS Admit Date: 07/13/2016 9:53:00 AM Patient Name: Lillian Quintero Visit Number: [id number] Discharge Date: 07/15/16 Dr. Keiko Shipman: Confusion/Altered mental status was documented in the ER notes, H&P and neurology consult. Patient history/risk factors: 66 yo female with a history of DM, HTN and seizure disorder presents with c/o weakness, left sided weakness/flaccidity, facial droop, JERONIMO and she is becoming increasingly more confusion. Per ED notes , she has garbled speech w/confused conversation. Clinical Indicators: Labs: triglycerides: 201, cholesterol: 208, BUN: 43, Cr: 3.00, glucose: 496, HgbA1: 9.7% CT brain: large evolving acute infarct of the right MCA distribution Treatment: carotid dopplers, ASA, Plavix, IVF @100cc/hr Consults: neurology, nephrology In your professional opinion, please clarify the etiology of the altered mental status, if known. Delirium (specify cause): Dementia (if know, specify Type and if with/without Behavioral Disturbance) Encephalopathy (specify Type and Underlying Medical Illness) Other condition (please specify) Unable to determine Please document in your progress notes and discharge summary in order to capture severity of illness and risk of mortality. Include clinical findings that support your diagnosis. FYI: Press F11 to launch patient chart. Place X here if this finding has no clinical significance, is not applicable or if you are not able to provide any additional documentation. HYUN
--- NOTE | 2016-08-12 18:29 | CDI ---
In responding to this query, please exercise your independent professional judgment. The [facility] Coding Staff and Clinical Documentation Specialists appreciate your assistance in clarifying documentation, maintaining compliance with coding guidelines, accurately documenting patients condition and capturing severity of illness. The fact that a question is asked does not imply that any particular answer is desired or expected. Communication forms are a method of clarifying documentation and are not made part of the Legal Health Record. Thank you in advance for your clarification. Last Revision, June 2015 Jeannie Guillen [address] [place] [address] Documentation Clarification Form Date: 07/15/2016 1:41:00 PM From: Julio Shukla, RN, BSN, CDI Admit Date: 07/13/2016 9:53:00 AM Patient Name: Lillian Quintero Visit Number: [id number] Discharge Date: 07/15/2016 Dr. Keiko Shipman: Confusion/Altered mental status was documented in the ER notes, H&P and neurology consult. Patient history/risk factors: 66 yo female with a history of DM, HTN and seizure disorder presents with c/o weakness, left sided weakness/flaccidity, facial droop, JERONIMO and she is becoming increasingly more confusion. Per ED notes , she has garbled speech w/confused conversation. Clinical Indicators: Labs: triglycerides: 201, cholesterol: 208, BUN: 43, Cr: 3.00, glucose: 496, HgbA1: 9.7% CT brain: large evolving acute infarct of the right MCA distribution Treatment: carotid dopplers, ASA, Plavix, IVF @100cc/hr Consults: neurology, nephrology In your professional opinion, please clarify the etiology of the altered mental status, if known. Delirium (specify cause): Dementia (if know, specify Type and if with/without Behavioral Disturbance) Encephalopathy (specify Type and Underlying Medical Illness) Other condition (please specify) Unable to determine Please document in your progress notes and discharge summary in order to capture severity of illness and risk of mortality. Include clinical findings that support your diagnosis. FYI: Press F11 to launch patient chart. Place X here if this finding has no clinical significance, is not applicable or if you are not able to provide any additional documentation. HYUN
--- NOTE | 2016-08-13 10:03 | DS ---
DATE OF ADMISSION: 07/13/2016 DATE OF DISCHARGE: 07/15/2016 TRANSFER SUMMARY DATE OF SERVICE: 07/15/2016 HOSPITAL COURSE: Ms. Quintero is a 66-year-old female with a past medical history of diabetes mellitus poorly controlled, hypertension, seizure disorder, thyroid disorder brought in by her family members due to left-sided weakness and slurring of speech. The patient had a CT scan of her head showing large acute right MCA infarct and she had flaccid left-sided paralysis. The patient has slurring of speech. The next day she showed some improvement. She was given aspirin and neurology has been consulted. As her symptoms did worsen, the patient did get a repeat CAT scan of her head on 07/15/2016, which was showing a midline shift of 1 cm to the left and so she was being transferred to [facility] for further management as we need neurosurgical evaluation for possible craniotomy. Hence, she was transferred to [facility]. I personally spoke with the admitting physician at [facility] who accepted the patient. The patient transferred there. PATIENT'S DISCHARGE DIAGNOSES: 1. 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 2. Acute kidney injury. 3. Hyperkalemia. 4. Hyperglycemia. 5. Leukocytosis. 6. Type 2 diabetes mellitus, poorly controlled with A1c of 9.7. 7. Hypertension. 8. Seizure disorder. 9. Thyroid disorder. 10. Delirium - secondary to stroke. The patient was transferred to [facility] in guarded condition. More than 35 mins spent coordinating the discharge. [facility]
== END 2016-07-15 20:54 | disposition short-term general hospital (02) | DRG 65 ==
LOC: EC 09:03 → 6SEL 09:53
PROVIDERS: ADMIT Internal Medicine; ATTEND Internal Medicine
DX: I63.511 Cerebral infarction due to unspecified occlusion or stenosis of right middle cerebral artery (principal); N17.9 Acute kidney failure, unspecified; G81.04 Flaccid hemiplegia affecting left nondominant side; E11.65 Type 2 diabetes mellitus with hyperglycemia; D72.829 Elevated white blood cell count, unspecified; E87.5 Hyperkalemia; I10 Essential (primary) hypertension; E07.9 Disorder of thyroid, unspecified; G40.909 Epilepsy, unspecified, not intractable, without status epilepticus; F41.9 Anxiety disorder, unspecified; R50.9 Fever, unspecified; R29.810 Facial weakness; R47.81 Slurred speech; D50.9 Iron deficiency anemia, unspecified; E78.00 Pure hypercholesterolemia, unspecified; E78.1 Pure hyperglyceridemia; R32 Unspecified urinary incontinence; Z79.4 Long term (current) use of insulin; Z79.899 Other long term (current) drug therapy; Z88.5 Allergy status to narcotic agent
CPT/HCPCS: 36415; 70450; 71010; 80048; 80053; 80061; 81001; 82009; 82550; 82553; 82728; 83036; 83090; 83540; 83550; 84484; 85025; 85610; 85730; 87040; 93005; 93306; 93880; 96361; 96374; 99285